=== PATIENT | female | born 1985 | race Caucasian/White ===

== ENCOUNTER 2018-10-07 02:53 | Emergency (ER) | payer OTHER ==
[~2018-10-07] VITALS: Ht 167.6 cm; Wt 80.3 kg
[~2018-10-07 02:53] MED LIST: ALBIPROI INH; AZIT500 PO; BCP'S; CITA20 PO; ESCI10 PO; Flagyl500 MG PO; HYDACE5 PO; MULVITMINE; PRED20 PO; Percocet 5-3251 EACH PO; RXHYDACE PO; RXPROM25 PO; YASMINE; Zantac150 MG PO
[2018-10-07] MEDS ORDERED: PROG100 PO (03:14)
[2018-10-07] MEDS ORDERED: ESTROGEN-METHY1 EAC1 PO (03:16)
[2018-10-07] MEDS ORDERED: XVITE TABLET1 EACH PO (03:17)
[2018-10-07] MEDS ORDERED: B Complex #11 EACH PO (03:17)
[2018-10-07] MEDS ORDERED: CHOL10002 (03:18)
[2018-10-07 03:31] LABS: BASOPHILS ABSOLUTE AUTO 0.04 K/mm3 (0.00-0.23); BASOPHILS PERCENT AUTO 0 % (0-2); EOSINOPHILS ABSOLUTE AUTO 0.16 K/mm3 (0.00-0.68); EOSINOPHILS PERCENT AUTO 2 % (0-6); Hematocrit 40.4 % (33.0-51.0); Hemoglobin 13.3 g/dL (11.5-16.0); IMMATURE GRAN ABSOLUTE AUTO 0.03 K/mm3 (0.00-0.10); IMMATURE GRAN PERCENT AUTO 0 % (0-1); LYMPHOCYTES ABSOLUTE AUTO 2.33 K/mm3 (0.84-5.20); LYMPHOCYTES PERCENT AUTO 26 % (21-46); MONOCYTES ABSOLUTE AUTO 0.59 K/mm3 (0.16-1.47); MONOCYTES PERCENT AUTO 7 % (4-13); Mean Corpuscular HGB 30.9 pg (26.0-34.0); Mean Corpuscular HGB Conc 32.9 g/dL (31.5-36.5); Mean Corpuscular Volume 94 fL (80-100); Mean Platelet Volume 9.6 fL (9.1-12.4); NEUTROPHILS ABSOLUTE AUTO 5.77 K/mm3 (1.96-9.15); NEUTROPHILS PERCENT AUTO 65 % (41-73); Platelet Count 222 K/mm3 (150-400); RDW Coefficient Variation 12.8 % (11.7-14.2); RDW Standard Deviation 44.5 fL (35.1-46.3); Red Blood Cell Count 4.31 M/mm3 (3.80-5.20); White Blood Cell Count 8.92 K/mm3 (4.00-11.30)
[2018-10-07 03:47] LABS: Alanine Aminotransfer (ALT/SGP 28 U/L (12-78); Albumin, Blood 3.8 g/dL (3.4-5.0); Albumin/Globulin Ratio 1.3 (0.8-1.8); Alk Phos 43 U/L (50-136); Anion Gap 8 mmol/L (6-16); Aspartate Aminotrans (AST/SGOT 12 U/L (12-37); Bilirubin, Total 0.2 mg/dL (0.1-1.0); Blood Urea Nitrogen 13 mg/dL (8-24); Bun/Creatinine Ratio 17.6 (12.0-20.0); CO2, Blood 27 mmol/L (21-32); Calcium, Blood 9.5 mg/dL (8.5-10.1); Chloride, Blood 108 mmol/L (98-108); Creatinine, Blood 0.74 mg/dL (0.40-1.00); Globulin, Blood 2.9 g/dL (2.2-4.0); Glomerular Filtration Rate >60 (60-); Glucose, Blood 98 mg/dL (70-99); Potassium, Blood 3.7 mmol/L (3.5-5.5); Sodium, Blood 143 mmol/L (136-145); Total Protein, Blood 6.7 g/dL (6.4-8.2)
[2018-10-07 04:26] LABS: Source, Urine Clean Catch
[2018-10-07 04:27] LABS: Bilirubin, Urine Neg (Neg); Blood, Urine Neg (Neg); Glucose Qualitative, Urine Neg (Neg); Ketones, Urine Neg (Neg); Leukocyte Esterase, Urine Neg (Neg); Nitrite, Urine Neg (Neg); Protein, Urine Neg (Neg); Specific Gravity, Urine 1.005 (1.003-1.022); Urobilinogen, Urine NORM (Normal)
[2018-10-07 04:30] LABS: Appearance, Urine Clear (Clear); Color, Urine Yellow (P-Yellow)
== END 2018-10-07 05:19 | disposition home or self-care (01) ==
LOC: ER 02:53
PROVIDERS: Emergency Medicine
DX: R10.11 Right upper quadrant pain (principal); F32.9 Major depressive disorder, single episode, unspecified; F41.9 Anxiety disorder, unspecified; J45.909 Unspecified asthma, uncomplicated; K58.9 Irritable bowel syndrome, unspecified; Z88.1 Allergy status to other antibiotic agents; Z88.8 Allergy status to other drugs, medicaments and biological substances
CPT/HCPCS: 36415; 76705; 80053; 81003; 83690; 85025; 96361; 96374; 96375; 99284-25; J2405; J3010; J7030

== ENCOUNTER 2022-11-20 00:07 | Observation (INO) | payer OTHER ==
[2022-11-20] VITALS (14 sets, daily range): BP systolic 95–127; BP diastolic 57–82
[~2022-11-20] VITALS: Ht 167.6 cm; Wt 89.5 kg
[~2022-11-20 00:07] MED LIST changes: +B Complex #11 EACH PO; +CHOL10002; +ESTROGEN-METHY1 EAC1 PO; +PROG100 PO; +XVITE TABLET1 EACH PO
[2022-11-20 00:26] LABS: BASOPHILS ABSOLUTE AUTO 0.03 K/mm3 (0.00-0.23); BASOPHILS PERCENT AUTO 1 % (0-2); EOSINOPHILS ABSOLUTE AUTO 0.08 K/mm3 (0.00-0.68); EOSINOPHILS PERCENT AUTO 1 % (0-6); Hematocrit 42.3 % (33.0-51.0); Hemoglobin 14.5 g/dL (11.5-16.0); IMMATURE GRAN ABSOLUTE AUTO 0.01 K/mm3 (0.00-0.10); IMMATURE GRAN PERCENT AUTO 0 % (0-1); LYMPHOCYTES ABSOLUTE AUTO 2.92 K/mm3 (0.84-5.20); LYMPHOCYTES PERCENT AUTO 49 % (21-46); MONOCYTES ABSOLUTE AUTO 0.49 K/mm3 (0.16-1.47); MONOCYTES PERCENT AUTO 8 % (4-13); Mean Corpuscular HGB 30.5 pg (26.0-34.0); Mean Corpuscular HGB Conc 34.3 g/dL (31.5-36.5); Mean Corpuscular Volume 89 fL (80-100); NEUTROPHILS ABSOLUTE AUTO 2.46 K/mm3 (1.96-9.15); NEUTROPHILS PERCENT AUTO 41 % (41-73); Platelet Count 223 K/mm3 (150-400); RDW Coefficient Variation 12.6 % (11.7-14.2); RDW Standard Deviation 41.7 fL (35.1-46.3); Red Blood Cell Count 4.75 M/mm3 (3.80-5.20); White Blood Cell Count 5.99 K/mm3 (4.00-11.30)
[2022-11-20 00:44] LABS: Albumin/Globulin Ratio 1.2 (0.8-1.8); Bilirubin, Total 0.2 mg/dL (0.1-1.0); Bun/Creatinine Ratio 14.2 (12.0-20.0); Calcium, Blood 9.3 mg/dL (8.5-10.1); Creatinine, Blood 0.92 mg/dL (0.40-1.00); Globulin, Blood 3.3 g/dL (2.2-4.0); Potassium, Blood 3.8 mmol/L (3.5-5.5); Total Protein, Blood 7.3 g/dL (6.4-8.2)
[2022-11-20] MEDS ORDERED: ESTRADIOL1 M1 PO (00:44)
[2022-11-20 00:53] LABS: Source, Urine Clean Catch
[2022-11-20 01:13] LABS: Appearance, Urine Cloudy (Clear); Bilirubin, Urine Neg (Neg); Blood, Urine Neg (Neg); Color, Urine Yellow (P-Yellow); Glucose Qualitative, Urine Neg (Neg); Ketones, Urine Neg (Neg); Leukocyte Esterase, Urine Neg (Neg); Nitrite, Urine Neg (Neg); Protein, Urine Neg (Neg); Specific Gravity, Urine 1.015 (1.003-1.022); Urobilinogen, Urine NORM (Normal)
[2022-11-20 01:29] LABS: Amorphous Heavy (0-Heavy); Bacteria Rare /hpf; Red Blood Cells, Urine 0-2 /hpf (0-2); Squamous Epithelial Cells Not Seen /hpf (Few); White Blood Cells, Urine 0-2 /hpf (0-5)
--- NOTE | 2022-11-20 04:47 | NUR ---
ADMISSION NOTE/SHIFT SUMMARY. PT ARRIVED ON UNIT AT 0425. ADMISSION PROCESS COMPLETED. PT AOX4, VERY PLEASANT, COOPERATIVE WITH CARE. INDEPENDENT WITHIN ROOM. ROOM AIR. NPO. ORDER FOR LR TO BE INFUSED BUT AWAITING TO HEAR AT WHAT RATE. NO PAIN AT THIS TIME BUT ENCOURAGED TO NOTIFY STAFF IMMEDIATELY IF PAIN/NAUSEA PRESENTS. SKIN ASSESSMENT UNREMARKABLE. BED LOCKED IN LOWEST POSITION. CALL LIGHT LEFT WITHIN REACH.
--- NOTE | 2022-11-20 12:56 | NUR ---
[facility] Day Surgery. History, Chart, Medications and Allergies reviewed before start of procedure.Pre-Op teaching done. Pt verbalizes understanding. Patient confirms NPO status and agrees with scheduled surgery.
[2022-11-20] MEDS ORDERED: Norco 5-325 Ta1 EACH PO (16:58)
--- NOTE | 2022-11-20 18:41 | NUR ---
PT DISCHARGED FROM THE UNIT. IV REMOVED. DISCHARGE INSTRUCTIONS REVIEWED. PICKED UP PAIN MEDICATION FROM PHARMACY. NAUSEA MEDICATED WITH ONTIME DOSE OF ZOFRAN. PT LEFT UNIT VIA WC TO DRIVE
== END 2022-11-20 18:45 | disposition home or self-care (01) ==
LOC: ER 00:07 → MEDS 00:08
PROVIDERS: Student in an Organized Health Care Education/Training Program; ADMIT Surgery
DX: K81.0 Acute cholecystitis (principal); J45.909 Unspecified asthma, uncomplicated; Z88.8 Allergy status to other drugs, medicaments and biological substances; Z88.1 Allergy status to other antibiotic agents
CPT/HCPCS: 74300; 76705; 80053; 81001; 83690; 85025; 88304; 96361; 96365; 96375; 99285-25; A9270; C1729; G0378; J0690; J1100; J1170; J1885; J2270; J2405; J2543; J2704; J2765; J3010; J7030; J7120

== ENCOUNTER 2024-10-18 21:27 | Emergency (ER) | payer OTHER ==
[~2024-10-18] VITALS: Ht 170.2 cm; Wt 86.2 kg
[~2024-10-18 21:27] MED LIST changes: +ESTRADIOL1 M1 PO; +Norco 5-325 Ta1 EACH PO
[2024-10-18 21:37] VITALS: BP 134/106
[2024-10-18] MEDS ORDERED: RX PP Dolutegravir Sodium 1 PREPACK/5 TAB TABLET PO ONE (22:45)
[2024-10-18] MEDS ORDERED: RX PP Emtricitabine/Tenofovir(TDF) 1 PREPACK/5 TAB UD ONE (22:45)
[2024-10-18] MEDS ORDERED: EMTRICITABINE-1 EAC1 PO (22:50)
[2024-10-18] MEDS ORDERED: TIVICAY50 MG PO (22:50)
[2024-10-19] MEDS ORDERED: ONDA4 PO (00:30)
== END 2024-10-19 00:33 | disposition home or self-care (01) ==
LOC: ER 21:27
PROVIDERS: Student in an Organized Health Care Education/Training Program
DX: Z77.21 Contact with and (suspected) exposure to potentially hazardous body fluids (principal); J45.909 Unspecified asthma, uncomplicated; Z88.1 Allergy status to other antibiotic agents; Z88.8 Allergy status to other drugs, medicaments and biological substances; Z79.3 Long term (current) use of hormonal contraceptives
CPT/HCPCS: 84460; A9270